=== PATIENT | female | born 1945 | race Caucasian/White ===

== ENCOUNTER 2020-05-15 12:14 | Inpatient (IN) | payer OTHER ==
[~2020-05-15] VITALS: Ht 160 cm; Wt 83.2 kg
[2020-05-15 14:15] LABS: Basophils # (auto) 0 10 ^3/uL (0-0.2); Basophils % (auto) 0.4 % (0.0-2.0); Eosinophils # (auto) 0 10 ^3/uL (0-0.8); Eosinophils % (auto) 0.2 % (0.0-7.0); Hematocrit 41.4 % (36.0-46.0); Lymphocytes # (auto) 1.2 10 ^3/uL (0.4-5.4); Lymphocytes % (auto) 19.4 % (10.0-50.0); Mean Corpuscular Hemoglobin 30.2 pg (28.0-32.0); Mean Corpuscular Hgb Conc. 33.7 g/dL (32.0-36.0); Mean Corpuscular Volume 89.7 fL (80.0-100.0); Monocytes # (auto) 0.8 10 ^3/uL (0-1.3); Monocytes % (auto) 12.5 % (0.0-12.0); Neutrophils # (auto) 4.2 10 ^3/uL (1.6-8.6); Neutrophils % (auto) 67.5 % (37.0-80.0); Nucleated Red Blood Cells % 0.1 %; Platelet Count (auto) 208 10^3/uL (140-450); Red Blood Cells 4.62 10^6/uL (4.0-5.20); Red Cell Distribution Width 14.1 % (11.8-14.3); White Blood Cell 6.2 10^3/uL (4.4-10.8)
[2020-05-15 14:42] LABS: Lactic Acid w/Reflex 2.6 mmol/L (0.4-2.0)
[2020-05-15 14:42] LABS: Albumin 3.5 g/dL (3.4-5.0); CRP High Sensitivity 0.28 mg/dL (< 0.3); Calcium 8.7 mg/dL (8.5-10.1); Potassium 4.1 mmol/L (3.5-5.1)
[2020-05-15 14:45] LABS: BUN/Creatinine Ratio 19.3; Bilirubin, Total 0.2 mg/dL (0.2-1.0); Total Protein 8.1 g/dL (6.4-8.2)
[2020-05-15] MEDS ORDERED: methylPREDNISolone SOD SUCC 125 MG/2 ML VL IV ONE (15:15)
[2020-05-15] MEDS ORDERED: AZITHROMYCIN 500MG/ 250ML 250 ML IV ONE (15:15)
[2020-05-15] MEDS ORDERED: CHOLECALCIFEROL (VITD3) 2,000 UNIT CAP/TAB PO ONE (15:15)
[2020-05-15] MEDS ORDERED: ZINC SULFATE 220mg CAP or TAB PO ONE (15:15)
[2020-05-15] MEDS ORDERED: ASCORBIC ACID 500 MG TAB PO ONE (15:15)
[2020-05-15] MEDS ORDERED: ALBUTEROL SULF HFA 90MCG INH 200DOSE IN PRN (21:45)
[2020-05-15] MEDS ORDERED: cefTRIAXone 1GM/50ML D5W 50 ML IV ONE (21:45)
[2020-05-15] MEDS ORDERED: SODIUM CHLORIDE 0.9% 1,000 ML IV ONE (21:45)
[2020-05-15] MEDS ORDERED: ACETAMINOPHEN 500 MG TAB PO PRN (21:45)
[2020-05-15] MEDS: ATORVASTATIN 20 MG TAB PO SCH (22:00)
[2020-05-15] MEDS ORDERED: NITROGLYCERIN 0.4 MG SL TAB SL PRN (23:30)
[2020-05-15] MEDS ORDERED: MORPHINE SULF INJ 2 MG/ML SYRINGE 1ML IV PRN (23:30)
[2020-05-15 23:47] LABS: Magnesium 1.9 mg/dL (1.6-2.6)
[2020-05-16] VITALS: BP 134/67
[2020-05-16] MEDS ORDERED: ASCO500T11 PO (01:58)
[2020-05-16] MEDS ORDERED: METH118C PO (01:58)
[2020-05-16] MEDS ORDERED: OMEG1360 PO (01:58)
[2020-05-16] MEDS ORDERED: METH-928 PO (01:58)
[2020-05-16] MEDS ORDERED: MELO-61 PO (01:58)
[2020-05-16] MEDS ORDERED: FLUO60TA PO (01:58)
[2020-05-16] MEDS ORDERED: METF-370 PO (01:58)
[2020-05-16] MEDS ORDERED: CLOP75TA28 PO (01:58)
[2020-05-16] MEDS ORDERED: ATOR40TA52 PO (01:59)
[2020-05-16] MEDS ORDERED: CHOLCAP4 PO (01:59)
[2020-05-16] MEDS ORDERED: PIOG1TAB36 PO (01:59)
[2020-05-16] MEDS ORDERED: ASPI-431 PO (01:59)
[2020-05-16] MEDS ORDERED: LOS25T PO (01:59)
[2020-05-16] MEDS ORDERED: MAGN400T40 PO (02:00)
[2020-05-16] MEDS ORDERED: ZINC50TA27 PO (02:00)
[2020-05-16] MEDS ORDERED: ALEN70TA74 PO (02:00)
[2020-05-16 06:57] LABS: Basophils # (auto) 0 10 ^3/uL (0-0.2); Basophils % (auto) 0.2 % (0.0-2.0); Eosinophils # (auto) 0 10 ^3/uL (0-0.8); Hematocrit 35.2 % (36.0-46.0); Hemoglobin 11.9 g/dL (12.2-16.2); Lymphocytes # (auto) 0.8 10 ^3/uL (0.4-5.4); Lymphocytes % (auto) 15.9 % (10.0-50.0); Mean Corpuscular Hgb Conc. 33.9 g/dL (32.0-36.0); Mean Corpuscular Volume 88.4 fL (80.0-100.0); Monocytes # (auto) 0.4 10 ^3/uL (0-1.3); Monocytes % (auto) 6.8 % (0.0-12.0); Neutrophils # (auto) 4.1 10 ^3/uL (1.6-8.6); Neutrophils % (auto) 77.1 % (37.0-80.0); Platelet Count (auto) 195 10^3/uL (140-450); Red Blood Cells 3.97 10^6/uL (4.0-5.20); White Blood Cell 5.3 10^3/uL (4.4-10.8)
[2020-05-16 07:07] LABS: Calcium 8.5 mg/dL (8.5-10.1)
[2020-05-16 07:10] LABS: BUN/Creatinine Ratio 31.8; Bilirubin, Total 0.2 mg/dL (0.2-1.0); Total Protein 6.9 g/dL (6.4-8.2)
[2020-05-16 08:00] VITALS: BP 119/55
[2020-05-16] MEDS: ZINC SULFATE 220mg CAP or TAB PO SCH (09:09)
[2020-05-16] MEDS: CHOLECALCIFEROL (VITD3) 2,000 UNIT CAP/TAB PO SCH (09:10)
[2020-05-16] MEDS: ASCORBIC ACID 1,000 MG TAB PO SCH (09:11)
[2020-05-16] MEDS: CLOPIDOGREL BISULFATE 75 MG TAB PO SCH (09:12)
[2020-05-16] MEDS: DexAMETHasone SOD PHOS 10MG/1ML VIAL INJ IV SCH (09:18)
[2020-05-16] MEDS: cefTRIAXone 1GM/50ML D5W 50 ML IV SCH (09:18)
[2020-05-16] MEDS: ENOXAPARIN SOD 40 MG/0.4 ML SYRINGE SC SCH (09:19)
[2020-05-16] MEDS: LOSARTAN POTASSIUM 25 MG TAB PO SCH (09:31)
[2020-05-16] MEDS: AZITHROMYCIN 500MG/ 250ML 250 ML IV SCH (12:25)
[2020-05-16] MEDS ORDERED: DEXTROSE (50%) 50ML SYRG IV PRN (15:00)
[2020-05-16 16:00] VITALS: BP 120/64
[2020-05-16] MEDS ORDERED: FLUO1TAB12 PO (16:22)
[2020-05-16] MEDS ORDERED: ZINC50TA7 PO (16:31)
[2020-05-16] MEDS: ACCU-CHEK COMFORT CURVE STRIP VI SCH ×2 (16:56→22:19)
[2020-05-16] MEDS: InsuLIN REG 1unit/0.01ml Soln (100units/ml) SC SCH ×2 (17:00→22:20)
[2020-05-16] MEDS: metFORMIN HYDROCHLORIDE 500 MG TAB PO SCH (17:00)
[2020-05-16] MEDS: ATORVASTATIN 20 MG TAB PO SCH (22:19)
[2020-05-17] VITALS: BP 109/56
[2020-05-17 05:43] LABS: Basophils # (auto) 0 10 ^3/uL (0-0.2); Basophils % (auto) 0.2 % (0.0-2.0); Eosinophils # (auto) 0 10 ^3/uL (0-0.8); Hematocrit 34.9 % (36.0-46.0); Hemoglobin 11.9 g/dL (12.2-16.2); Lymphocytes # (auto) 1.3 10 ^3/uL (0.4-5.4); Lymphocytes % (auto) 18.2 % (10.0-50.0); Mean Corpuscular Hemoglobin 30.3 pg (28.0-32.0); Mean Corpuscular Hgb Conc. 34.1 g/dL (32.0-36.0); Mean Corpuscular Volume 88.7 fL (80.0-100.0); Monocytes # (auto) 0.9 10 ^3/uL (0-1.3); Monocytes % (auto) 12.2 % (0.0-12.0); Neutrophils # (auto) 4.9 10 ^3/uL (1.6-8.6); Neutrophils % (auto) 69.4 % (37.0-80.0); Platelet Count (auto) 207 10^3/uL (140-450); Red Blood Cells 3.94 10^6/uL (4.0-5.20); White Blood Cell 7.1 10^3/uL (4.4-10.8)
[2020-05-17 06:04] LABS: BUN/Creatinine Ratio 32.3; Calcium 8.4 mg/dL (8.5-10.1); Magnesium 1.9 mg/dL (1.6-2.6)
[2020-05-17] MEDS: ACCU-CHEK COMFORT CURVE STRIP VI SCH ×2 (06:06→11:51)
[2020-05-17] MEDS: InsuLIN REG 1unit/0.01ml Soln (100units/ml) SC SCH ×2 (06:14→11:53)
[2020-05-17 08:00] VITALS: BP 115/55
[2020-05-17 08:22] VITALS: BP 115/55
[2020-05-17] MEDS: metFORMIN HYDROCHLORIDE 500 MG TAB PO SCH (08:31)
[2020-05-17] MEDS: cefTRIAXone 1GM/50ML D5W 50 ML IV SCH (08:31)
[2020-05-17] MEDS: DexAMETHasone SOD PHOS 10MG/1ML VIAL INJ IV SCH (09:15)
[2020-05-17] MEDS: ZINC SULFATE 220mg CAP or TAB PO SCH (09:16)
[2020-05-17] MEDS: AZITHROMYCIN 500MG/ 250ML 250 ML IV SCH (09:16)
[2020-05-17] MEDS: CLOPIDOGREL BISULFATE 75 MG TAB PO SCH (09:17)
[2020-05-17] MEDS: CHOLECALCIFEROL (VITD3) 2,000 UNIT CAP/TAB PO SCH (09:17)
[2020-05-17] MEDS: ASCORBIC ACID 1,000 MG TAB PO SCH (09:17)
[2020-05-17] MEDS: LOSARTAN POTASSIUM 25 MG TAB PO SCH (09:17)
[2020-05-17] MEDS: ENOXAPARIN SOD 40 MG/0.4 ML SYRINGE SC SCH (09:18)
[2020-05-17] MEDS ORDERED: TEMAZEPAM 15 MG CAP PO PRN (09:45)
[2020-05-17 13:59] VITALS: BP 115/55
== END 2020-05-17 16:30 | DRG 177 ==
LOC: ER 12:14 → EDBD 12:14 → TELE-WESTW 12:15
PROVIDERS: ADMIT Nurse Practitioner; ATTEND Internal Medicine Geriatric Medicine
DX: U07.1 COVID-19 (principal); J12.82 Pneumonia due to coronavirus disease 2019; J96.01 Acute respiratory failure with hypoxia; I69.351 Hemiplegia and hemiparesis following cerebral infarction affecting right dominant side; N17.9 Acute kidney failure, unspecified; T83.090A Other mechanical complication of cystostomy catheter, initial encounter; E11.9 Type 2 diabetes mellitus without complications; I10 Essential (primary) hypertension; E78.5 Hyperlipidemia, unspecified; E86.0 Dehydration; E66.9 Obesity, unspecified; N31.9 Neuromuscular dysfunction of bladder, unspecified; Z79.02 Long term (current) use of antithrombotics/antiplatelets; Z82.49 Family history of ischemic heart disease and other diseases of the circulatory system; Z93.59 Other cystostomy status; Z79.84 Long term (current) use of oral hypoglycemic drugs; Z79.899 Other long term (current) drug therapy; Z90.49 Acquired absence of other specified parts of digestive tract; Z68.31 Body mass index [BMI] 31.0-31.9, adult
CPT/HCPCS: 36415; 71045; 80048; 80053; 82728; 82962; 83036; 83605; 83615; 83735; 85025; 85379; 86141; 87040; 87426; 93005; 99291; G0378; J0696; J1100; J1815